=== PATIENT | male | born 1970 | race Caucasian/White ===

== ENCOUNTER 2018-02-10 08:54 | Outpatient (CLI) | payer BC ==
--- NOTE | 2018-02-10 10:43 | RAD ---
LEFT SHOULDER THREE VIEWS: HISTORY: Fall. Left shoulder pain. FINDINGS: No acute fracture or dislocation is seen. POS: [facility]
--- NOTE | 2018-02-10 11:07 | RAD ---
RIGHT WRIST FOUR VIEWS: History: 47-year-old male with history of pain following a fall last Friday with left wrist injury. Comparison: 02-05-18 FINDINGS: On the lateral view only there is a question of a small cortical defect potentially involving the ham ate or fifth metacarpal hamate junction. If the patient is persistently point tender in this location then I would recommend a follow up either CT or MRI study with attenuation to that region. No other significant abnormality is seen. IMPRESSION: Questionable cortical defect seen only on the lateral view at the level of the hamate bone fifth meta carpal region which may just represent a spurious finding. If the patient continues to be point tende r, particularly in this location, follow up imaging to include either a CT or MRI study is recommende mer [facility]
== END 2018-02-10 08:55 | disposition home or self-care (01) ==
LOC: SCSRAD 08:54
PROVIDERS: ATTEND Family Medicine
DX: S69.91XD Unspecified injury of right wrist, hand and finger(s), subsequent encounter (principal); M25.512 Pain in left shoulder

== ENCOUNTER 2018-11-26 10:15 | Outpatient (CLI) | payer BC ==
--- NOTE | 2018-11-26 13:09 | RAD ---
RIGHT SHOULDER ARTHROGRAM: HISTORY: Shoulder pain. COMPARISON: None. FINDINGS: The patient was brought to the fluoroscopy suite. All questions were answered. The patient's right shoulder was prepped and draped in normal sterile fashion. Informed consent was obtained. Timeout performed. Using a 5 inch 22 gauge needle, the right shoulder joint was accessed after adequate anesthesia was a dministered. A total of 10 mL contrast solution was instilled into the joint. Interarticular locati on was confirmed with fluoroscopy. IMPRESSION: Technically successful fluoroscopic-guided right shoulder arthrogram for CT. FLUORO TIME: 0.4 minutes. DOSE: 214.7 mGy*^m2. POS: [facility]
--- NOTE | 2018-11-26 13:49 | CT ---
CT RIGHT SHOULDER WITH INTRAARTICULAR CONTRAST: HISTORY: Shoulder pain. COMPARISON: Arthrogram from same day. FINDINGS: Visualized lungs are clear. No mediastinal adenopathy. The thyroid is unremarkable. No axillary adenopathy. BICEPS TENDON: The extraarticular biceps tendon appears to be somewhat thin and attenuated. Intraarticular biceps t endon is also mildly attenuated. LABRUM: There is abnormal insinuation of contrast within the superior labrum suggesting a superior labral tea r. ROTATOR CUFF: There is a full-thickness full-width supraspinatus tendon tear from the footprint with minimal 5-6 mm retraction. There is some bridging scar from the torn fibers to the footprint. There is contrast e xtenuating into the subacromial/subdeltoid bursa. The infraspinatus tendon is intact. BONES: There is a type III acromion with a large subacromial spur. Distal clavicular osteolysis is present. There some ossification of the coracoclavicular ligament. Normal glenoid version. There are large subcortical cysts of the footprint of the greater tuberosity. MUSCLES: There is no significant atrophy of the supraspinatus muscle. IMPRESSION: 1. Full-thickness, full-width supraspinatus tendon tear from the footprint with 5-6 mm retraction. There is extension of contrast into the subacromial/subdeltoid bursa. No significant supraspinatus m uscle atrophy. There is some bridging scar seen from the tendon through the footprint. 2. What is thought to be a superior labral tear anterior and posterior to the biceps tendon insertio n. 3. Slightly attenuated extraarticular biceps tendon. 4. Type III acromion with large subacromial spur. POS: [facility]
== END 2018-11-26 10:16 | disposition home or self-care (01) ==
LOC: RAD 10:15
PROVIDERS: ATTEND Orthopaedic Surgery
DX: M25.511 Pain in right shoulder (principal); S46.911A Strain of unspecified muscle, fascia and tendon at shoulder and upper arm level, right arm, initial encounter; M62.521 Muscle wasting and atrophy, not elsewhere classified, right upper arm
CPT/HCPCS: 23350

== ENCOUNTER 2019-01-27 00:04 | Outpatient (CLI) | payer BC ==
[2019-01-27 16:54] LABS: #Eosinphils 0.1 thou/uL (0.0-0.7); #Lymphocytes 1.9 thou/uL (1.20-3.40); #Monocytes 0.6 thou/uL (0.11-0.59); #Neutrophils 4.5 thou/uL (1.40-6.50); %Basophils 0.4 % (0.0-1.0); %Eosinophils 1.5 % (0.0-10.0); %Lymphocytes 26.7 % (21.0-51.0); %Monocytes 8.8 % (0.0-10.0); %Neutrophils 62.6 % (42.0-75.0); Hemoglobin 14.7 g/dL (14.0-18.0); Mean Corpuscular HGB CONC 34.3 g/dL (32.0-36.0); Mean Corpuscular Volume 93.1 fL (78.0-98.0); Mean Platelet Volume 8.1 fL (7.4-10.4); Platelet Count 176 thou/uL (130-400); RBC Distribution Width 11.9 % (11.5-14.5); White Blood Cell (WBC) Count 7.3 thou/uL (4.8-10.8)
[2019-01-27 17:14] LABS: Anion Gap 15 mmol/L (10-20); BUN (Urea Nitrogen) 15 mg/dL (8.9-20.6); Calc. Creatinine Clearance 0 mL/min (70-130); Calcium 9.6 mg/dL (7.8-10.44); Carbon Dioxide 24 mmol/L (22-29); Chloride 100 mmol/L (98-107); Estimated GFR-MDRD 71; Glucose 91 mg/dL (70-105); Potassium 3.7 mmol/L (3.5-5.1); Sodium 135 mmol/L (136-145)
== END 2019-01-27 00:05 | disposition home or self-care (01) ==
LOC: LABBT 00:04
PROVIDERS: ATTEND Orthopaedic Surgery
DX: Z01.818 Encounter for other preprocedural examination (principal); M75.101 Unspecified rotator cuff tear or rupture of right shoulder, not specified as traumatic
CPT/HCPCS: 80048; 85025; 93005; 93010

== ENCOUNTER 2019-01-29 06:00 | Day surgery (SDC) | payer BC ==
[2019-01-27 15:52] VITALS: BMI 38.2
[2019-01-29] MEDS ORDERED: Midazolam HCl 2 mg/2 ml Vial ONE ×3 (06:36→06:55)
[2019-01-29] MEDS ORDERED: Fentanyl 100 MCG/2 ML VIAL ONE ×4 (06:36→10:08)
[2019-01-29] MEDS ORDERED: Lidocaine 1% (PF) 30 ML VIAL ONE (06:55)
[2019-01-29] MEDS ORDERED: traMADol HCl 50 MG TAB PO PRN ×2 (07:35)
[2019-01-29] MEDS ORDERED: Fentanyl 100 MCG/2 ML VIAL IV PRN (07:35)
[2019-01-29] MEDS ORDERED: Ropivacaine 0.2% 550 ML 550 ML NERVE BLCK SCH (07:35)
[2019-01-29] MEDS ORDERED: HYDROcodone/Acetaminophen 5/325 mg Tablet PO PRN ×2 (07:35)
[2019-01-29] MEDS ORDERED: Zolpidem Tartrate 5 MG TAB PO PRN (07:35)
[2019-01-29] MEDS ORDERED: Promethazine HCl 25 MG/ML VIAL IM PRN (07:35)
[2019-01-29] MEDS ORDERED: Ondansetron PF 4 MG/2 ML Vial IVP PRN (07:35)
[2019-01-29] MEDS ORDERED: Bupivacaine/Epinephrine 0.25% 30 ML VIAL ONE (08:12)
--- NOTE | 2019-01-29 13:17 | OP ---
DATE OF PROCEDURE: 01/29/2019 PREOPERATIVE DIAGNOSES: Right shoulder impingement, rotator cuff tear, and degenerative SLAP tear leading to biceps tearing and instability. POSTOPERATIVE DIAGNOSES: Right shoulder impingement, rotator cuff tear, and degenerative SLAP tear leading to biceps tearing and instability. PROCEDURE PERFORMED: 1. Right shoulder arthroscopy with subacromial decompression. 2. Arthroscopic rotator cuff repair. 3. Open biceps tenodesis. BOXING AND PRESSING SUPERVISOR: Raffaele Jim PA-C BLOOD LOSS: Minimal. COMPLICATIONS: None. ANESTHESIA: The patient did have a general anesthetic as well as preoperative block. DISPOSITION: He went to recovery room in stable condition. IMPLANTS: We used a triple loaded single titanium anchor first cuff tear. We used a 7 x 23 BioComposite Bio-Tenodesis screw for his biceps tenodesis. INDICATIONS: A 48-year-old male, who comes in complaining of shoulder pain, weakness, and was found on MRI to have a cuff tear as well as a biceps instability secondary to large degenerative SLAP tear. At this time, he opted to have surgery. DESCRIPTION OF PROCEDURE: After all appropriate consent forms were explained and signed, he was taken to the operating room and at this time was given general anesthetic. Once the level of anesthesia was appropriate, he was rolled into the left lateral decubitus position with all bony prominences well padded. Axillary roll was placed in the left axilla and a hong bag was inflated to hold him in this position. The arm was then suspended with 17 pounds in standard surgical fashion. The right shoulder and upper extremity were then prepped and draped in standard surgical fashion. Bony anatomical landmarks were drawn out. The subacromial space was infiltrated with Marcaine with epinephrine. Posterior portal was established. Scope was placed into the shoulder joint. Anterior working portal was then made using a needle localization technique. Diagnostic arthroscopy commenced. The articular surface of the glenoid did have some minor changes, but overall was intact. Humeral head was in good condition. No loose bodies were noted in the axillary pouch. Posterior labrum was okay. Anterior labrum was okay. The superior labrum from anterior to the biceps tendon all the way to posterior superior was degenerative and unstable. Biceps tendon itself has some significant degenerative changes and large flat appearance and at this time, a green cannula was placed anteriorly. A needle was used to place the stitch through the biceps and the biceps was cut off the superior labrum using arthroscopic scissors. This area was smoothed out with a shaver. We then debrided our cuff tear from the undersurface. We then removed the camera and replaced in the subacromial space. Lateral working portal was made. Small bony decompression was performed using the SERFAS energy and the shaver. The rotator cuff tear was found. It was debrided of devitalized tissue on the edges and all soft tissue was removed from its insertion site onto the greater tuberosity. A needle was then used to percutaneously locate the area to put an anchor in and a triple loaded anchor was placed into the greater tuberosity. All the sutures were pulled out the front cannula and through the passport portal. We used the Scorpion device to place the stitches through the cuff in mattress fashion. These were then tied and it was felt at this time that this now required a double row repair as it was nice and closed in an anatomic fashion. Therefore, this was left alone as it is in the sutures were cut. We then removed the camera and drained the shoulder and went ahead and thus performed our biceps tenodesis. Fifteen blade was used to incise down through skin. Bovie was used to coagulate any brisk venous bleeding. We opened our fascia sharply. We then used finger dissection in line with the deltoid fibers to get down to the underlying humerus and at this time, the transverse humeral ligament was opened up and the biceps was pulled out of the groove. All brisk venous bleeding was clean and coagulated and once the groove was cleaned out of any tissue, we sewed the tendon and removed the intra-articular portion of this. We placed our pin, reamed with a 7 mm reamer to a depth of 25, and then placed a 7 x 23 Bio[employer]posite Bio-Tenodesis screw in standard fashion. Sutures were tied over top of this. The screw could not back out. Once this was done, we thoroughly irrigated and dried. We then used a running Vicryl to close our deltoid fascia, 2-0 Vicryl and sutures to close the skin. Portals were closed with simple nylon stitch. Bulky sterile dressing was applied. The patient was then awakened he was taken to recovery room in stable condition. All counts were correct at the end of the case and he did receive preoperative IV antibiotics. Job ID: [id number]
[2019-01-29] MEDS ORDERED: Ropivacaine 0.2% HCl/PF (40 MG/20 ML VIAL) ONE (16:28)
[2019-01-29] MEDS ORDERED: Ropivacaine 0.5% HCl/PF (150 MG/30 ML VIAL) ONE (16:28)
[2019-01-29] MEDS ORDERED: Ondansetron PF 4 MG/2 ML Vial ONE (17:07)
[2019-01-29] MEDS ORDERED: Lidocaine 1% PF 5 ML VIAL ONE (17:07)
[2019-01-29] MEDS ORDERED: PROPOFOL 200 MG/20 ML VIAL ONE (17:07)
[2019-01-29] MEDS ORDERED: Rocuronium Bromide 10 MG/ML (10ML VIAL) ONE (17:07)
[2019-01-29] MEDS ORDERED: Dexamethasone 20 MG/5 ML VIAL ONE (17:07)
== END 2019-01-29 11:33 | disposition home or self-care (01) ==
LOC: SDC 06:00
PROVIDERS: ATTEND Orthopaedic Surgery
PROC: 0RHJ04Z Insertion of Internal Fixation Device into Right Shoulder Joint, Open Approach (ICD-10-PCS; principal; 2019-01-29)
PROC: 0RNJ4ZZ Release Right Shoulder Joint, Percutaneous Endoscopic Approach (ICD-10-PCS; principal; 2019-01-29)
PROC: 0LS10ZZ Reposition Right Shoulder Tendon, Open Approach (ICD-10-PCS; principal; 2019-01-29)
PROC: 0LQ14ZZ Repair Right Shoulder Tendon, Percutaneous Endoscopic Approach (ICD-10-PCS; principal; 2019-01-29)
PROC: 0RHJ44Z Insertion of Internal Fixation Device into Right Shoulder Joint, Percutaneous Endoscopic Approach (ICD-10-PCS; principal; 2019-01-29)
DX: M75.101 Unspecified rotator cuff tear or rupture of right shoulder, not specified as traumatic (principal); M25.811 Other specified joint disorders, right shoulder; S43.431A Superior glenoid labrum lesion of right shoulder, initial encounter; M25.311 Other instability, right shoulder; M19.011 Primary osteoarthritis, right shoulder; I10 Essential (primary) hypertension; F17.220 Nicotine dependence, chewing tobacco, uncomplicated; Z79.899 Other long term (current) drug therapy
CPT/HCPCS: A4306; C1713; J0690; J2001; J2250; J2795; J3010

== ENCOUNTER 2019-06-17 09:50 | Outpatient (CLI) | payer BC ==
--- NOTE | 2019-06-17 11:19 | RAD ---
Left shoulder arthrogram: 06/17/2019 COMPARISON: None HISTORY: Left shoulder pain, injury. Arthrogram requested prior to CT FINDINGS: Informed consent obtained prior to the procedure. Preprocedural imaging demonstrates moderate degenerative change involving the left acromioclavicular joint. No acute fracture or evidence of dislocation is seen. Patient was placed on the fluoroscopic table and the skin overlying the left shoulder joint was prepp ed and draped in normal sterile fashion. Skin was anesthetized with 1% buffered lidocaine. With intermittent fluoroscopic guidance, a 22-gauge spinal needle is advanced into the left shoulder joint and intra-articular location confirmed with injection of small volume lidocaine. Subsequently, approximately 10 cc of a solution containing iodin ated contrast media was injected into the left shoulder joint. Needle was removed. Patient tolerated the procedure well. Patient was sent to the CT scanner for CT arthrogram of left shoulder. Exposure data: 0.9 minutes of fluoroscopic time, 81.7 mcg/sq m. IMPRESSION: Successful left shoulder arthrogram prior to CT arthrogram.
--- NOTE | 2019-06-17 13:10 | CT ---
LEFT SHOULDER CT SCAN POST ARTHROGRAM CONTRAST: HISTORY: Left shoulder pain. FINDINGS: AC joint arthrosis changes are noted with some mild downsloping of the anterior acromion as well as s ome undersurface spurring of the distal clavicle. Prominent subchondral cystic changes involving the greater tuberosity at several levels. Several tiny foci of calcification within the infraspinatus t endon insertion region. Minimal focal thickening of the infraspinatus tendon, evidence for tendinopa thy. No evidence for a complete or full-thickness rotator cuff tear. No evidence for retraction. T he posterior superior labrum appears to be slightly blunted, but without evidence for an acute labral tear. Rotator cuff muscles appear to be within normal limits of signal and volume. Subscapularis t endon and biceps tendons appear intact. No evidence for acute osseous abnormality or osteochondral d efect. IMPRESSION: Acromioclavicular joint arthrosis with some downsloping of the anterior acromion and some undersurfac e spurring of the distal clavicle. No evidence for complete or full-thickness or retracted rotator c uff tear. Minimal focal tendinopathy in the infraspinatus tendon. Two small foci of calcification o r ossification within the infraspinatus tendon insertion region. Greater tuberosity subchondral cyst s. Slight blunting of the posterior superior labrum but without evidence for an acute labral tear. POS: [facility]
== END 2019-06-17 09:51 | disposition home or self-care (01) ==
LOC: RAD 09:50
PROVIDERS: ATTEND Orthopaedic Surgery
DX: M25.512 Pain in left shoulder (principal); M19.012 Primary osteoarthritis, left shoulder; M25.812 Other specified joint disorders, left shoulder; M77.9 Enthesopathy, unspecified
CPT/HCPCS: 23350

== ENCOUNTER 2021-04-24 14:52 | Outpatient (CLI) | payer BC ==
[2021-04-24 16:22] LABS: #Eosinphils 0.1 10x3/uL (0.0-0.5); #Monocytes 0.6 10x3/uL (0.0-1.1); #Neutrophils 4.6 10x3/uL (1.5-8.4); %Basophils 0.4 % (0.0-2.0); %Monocytes 8.2 % (0.0-10.0); Hemoglobin 14.4 g/dL (13.5-17.5); Mean Corpuscular HGB CONC 34.7 g/dL (32.0-36.0); Mean Corpuscular Hemoglobin 32.2 pg (27.0-33.0); Mean Corpuscular Volume 92.8 fl (81.2-95.1); Mean Platelet Volume 10.4 fl (7.4-10.4); Platelet Count 170 10x3/uL (150-450); RBC Distribution Width 12.6 % (11.5-14.5); Red Blood Cell (RBC) Count 4.47 10x6/uL (4.32-5.72); White Blood Cell (WBC) Count 6.8 10x3/uL (3.5-10.5)
[2021-04-24 16:32] LABS: Anion Gap 15 mmol/L (10-20); BUN (Urea Nitrogen) 16 mg/dL (8.9-20.6); Calc. Creatinine Clearance 0 mL/min (70-130); Calcium 9.8 mg/dL (7.8-10.44); Carbon Dioxide 27 mmol/L (22-29); Chloride 98 mmol/L (98-107); Glucose 104 mg/dL (70-105); Potassium 3.8 mmol/L (3.5-5.1); Sodium 136 mmol/L (136-145)
== END 2021-04-24 14:53 | disposition home or self-care (01) ==
LOC: LABBT 14:52
PROVIDERS: ATTEND Orthopaedic Surgery
DX: Z01.818 Encounter for other preprocedural examination (principal); M23.321 Other meniscus derangements, posterior horn of medial meniscus, right knee; Z20.822 Contact with and (suspected) exposure to COVID-19; I51.7 Cardiomegaly
CPT/HCPCS: 71046; 80048; 85025; 93005; 93010

== ENCOUNTER 2021-04-27 06:45 | Day surgery (SDC) | payer BC ==
[2021-04-26 11:21] VITALS: BMI 41.1
[2021-04-27] MEDS ORDERED: PROPOFOL 20 ML ONE (08:47)
[2021-04-27] MEDS ORDERED: Bupivacaine 0.25% HCL 30 ML VIAL ONE (09:05)
[2021-04-27] MEDS ORDERED: EPINEPHrine 1 MG/ML AMP ONE (09:05)
[2021-04-27] MEDS ORDERED: Bupivacaine PF 0.5% 30 ML VIAL ONE (09:30)
[2021-04-27] MEDS ORDERED: Lidocaine 2% w/Epinephrine 1:200K 20 ML VIAL ONE (09:30)
[2021-04-27] MEDS ORDERED: Lidocaine 1% PF 5 ML VIAL ONE (09:30)
[2021-04-27] MEDS ORDERED: Ondansetron PF 4 MG/2 ML Vial ONE ×2 (09:30→09:46)
[2021-04-27] MEDS ORDERED: PROPOFOL 200 MG/20 ML VIAL ONE (09:30)
[2021-04-27] MEDS ORDERED: Fentanyl 100 MCG/2 ML VIAL ONE (09:32)
[2021-04-27] MEDS ORDERED: hydrALAZINE 20 MG/ML VIAL ONE (12:13)
== END 2021-04-27 13:00 | disposition home or self-care (01) ==
LOC: SDC 06:45
PROVIDERS: ATTEND Orthopaedic Surgery
PROC: 0SBC4ZZ Excision of Right Knee Joint, Percutaneous Endoscopic Approach (ICD-10-PCS; principal; 2021-04-27)
DX: M23.321 Other meniscus derangements, posterior horn of medial meniscus, right knee (principal); I10 Essential (primary) hypertension; F17.220 Nicotine dependence, chewing tobacco, uncomplicated
CPT/HCPCS: J0171; J0360; J0690; J2405; J2704; J3010; S0020

== ENCOUNTER 2023-12-03 05:32 | Day surgery (SDC) | payer BC ==
[2023-11-28 08:58] VITALS: BMI 36.3
[2023-12-03] MEDS ORDERED: Dexmedetomidine 200 MCG/2 ML VIAL ONE (06:19)
[2023-12-03] MEDS ORDERED: PROPOFOL 20 ML ONE ×2 (06:20→07:08)
[2023-12-03] MEDS ORDERED: fentaNYL PF 100 MCG/2 ML SYRINGE ONE (06:20)
[2023-12-03] MEDS ORDERED: Midazolam HCl 2 mg/2 ml Vial ONE ×2 (06:20→06:37)
[2023-12-03] MEDS ORDERED: EPINEPHrine 1 MG/ML VIAL ONE (06:56)
[2023-12-03] MEDS ORDERED: Sodium Chloride 0.9% 100 ML ONE ×2 (06:56→07:21)
[2023-12-03] MEDS ORDERED: Lidocaine 1% (PF) 30 ML VIAL ONE ×2 (06:56→07:56)
[2023-12-03] MEDS ORDERED: CEFAZOLIN 2 GM VIAL ONE (06:56)
[2023-12-03] MEDS ORDERED: Dexamethasone 4 mg/ml Vial ONE (07:15)
[2023-12-03] MEDS ORDERED: Glycopyrrolate 0.2 MG/ML 5 ML SYRINGE ONE (07:15)
[2023-12-03] MEDS ORDERED: Ondansetron PF 4 MG/2 ML Vial ONE (07:15)
[2023-12-03] MEDS ORDERED: Bupivacaine PF 0.5% 30 ML VIAL ONE (07:56)
== END 2023-12-03 10:35 | disposition home or self-care (01) ==
LOC: SDC 05:32
PROVIDERS: ATTEND Orthopaedic Surgery
PROC: 0LM30ZZ Reattachment of Right Upper Arm Tendon, Open Approach (ICD-10-PCS; principal; 2023-12-03)
DX: S46.211A Strain of muscle, fascia and tendon of other parts of biceps, right arm, initial encounter (principal); I10 Essential (primary) hypertension; F17.220 Nicotine dependence, chewing tobacco, uncomplicated; X58.XXXA Exposure to other specified factors, initial encounter
CPT/HCPCS: C1713; J0171; J0665; J1100; J2001; J2250; J2405; J2704; J3490